=== PATIENT | female | born 1955 | race Caucasian/White ===

== ENCOUNTER 2017-04-05 18:51 | Emergency (ER) | payer OTHER ==
[~2017-04-05] VITALS: Ht 162.6 cm; Wt 100.8 kg
[~2017-04-05 18:51] MED LIST: ASCA500 PO; CHOL100010 PO; DULO60CA44 PO; GABA600T PO; GFNSR600 PO; LATA0.009 OPB; OXYC1CAP5 PO; PROC1TAB5 PO; SIME1CAP11 PO
[2017-04-05 18:55] VITALS: TEMP 36.6; Ht 162.6 cm; Wt 100.8 kg
[2017-04-05] MEDS ORDERED: LDDP5 TOP (19:33)
[2017-04-05] MEDS ORDERED: LSX20 PO (19:33)
[2017-04-05] MEDS ORDERED: XLTOPS OPB (19:33)
--- NOTE | 2017-04-05 19:38 | EMERGENCY ROOM VISIT NOTE ---
History First contact with patient: 18:59 Chief Complaint: SWELLING TO EXTREMITY Stated Complaint: LEFT LEG PAIN AND SWELLING History of Present Illness The patient is a 62 year old female who presents to the Emergency Room with complaints of left leg pain and swelling. The patient states that she noticed pain and swelling in the left leg yesterday. The patient states her pain is 8/ 10. The patient denies any known injury. She denies falling. The patient traveled recently but just back and forth to [facility]. She denies any pain in her chest or trouble breathing. She denies any redness or warmth. The patient denies any personal or family history of DVT or PE. She states that her has had a pulmonary embolus and she was concerned. She denies any other symptoms. Review of Systems A 10 system review of systems was completed with positives and pertinent negatives listed in the HPI. Past Medical/Surgical History Medical Problems: (1) Benign hypertension (2) delivery delivered (3) Depression (4) Obesity (5) pylorus repair (6) Rotator cuff injury (7) UTI (urinary tract infection) Surgical Problems: (1) H/O arthroscopic knee surgery (2) H/O dilation and curettage (3) H/O esophagogastroduodenoscopy (4) H/O gastric bypass (5) H/O ovarian cystectomy (6) History of liver biopsy (7) Total knee replacement status Family History Diabetes mellitus Hypertension MOTHER Kidney stones FATHER Stroke FATHER Social History Smoking Status: Never Smoker Alcohol Use: none Marital Status: Housing Status: lives with family Occupation Status: unemployed Current/Historical Medications Scheduled Acetaminophen (Tylenol), 1,000 MG PO PRN UD Ascorbic Acid (Vitamin C), 500 MG PO DAILY Calcium W/ Vitamins D & K (Viactiv), 2 TABS PO DAILY Cholecalciferol (D 50717), 1,000 UNITS DAILY Cyanocobalamin (Vitamin Deficiency Inject), 1 DOSE INJ MONTHLY Gabapentin (Neurontin), 600 TAB PO BID Latanoprost (Latanoprost), 1 DROP OPB QPM Lidocaine (Lidocaine), 1 PATCH TOP DAILY Omeprazole (Prilosec), 20 MG PO DAILY Scheduled PRN Furosemide (Furosemide), 20 MG PO DAILY PRN for SWELLING Glycopyrrolate (Glycopyrrolate), 1 MG PO TID PRN for SWEATING Simethicone (Simethicone), MG PO DIRECTED PRN for gas relief Allergies Coded Allergies: Verapamil (Verified Allergy, Mild, red, hot, 11/05/15) Fentanyl (Unverified Allergy, Unknown, head feels funny, 11/05/15) Morphine (Verified Allergy, Unknown, UNKNOWN, 11/05/15) Sulfamethoxazole w/Trimethoprim (Verified Allergy, Unknown, LEG WEAKNESS, 04/05/17) INFO FROM [facility] Physical Exam Vital Signs Date Time Temp Pulse Resp B/P (MAP) Pulse Ox O2 Delivery O2 Flow Rate FiO2 04/05/17 20:14 70 18 126/89 97 04/05/17 18:55 36.6 85 18 140/87 98 Room Air Physical Exam VITALS: Vitals are noted on the nurse's note and reviewed by myself. Vital signs stable. GENERAL: This is a 62-year-old female in no acute distress, nondiaphoretic, well -developed well-nourished. SKIN: The skin was without rashes, erythema, or bruising. There is mild edema noted to the bilateral lower extremities, left minimally worse than right There is no tenting of the skin. Capillary reflex less than 2 seconds. HEAD: Normocephalic atraumatic. EARS: The external ears are normal in appearance. EYES: Pupils equal round and reactive to light and accommodation. Conjunctivae without injection, sclerae without icterus. Extraocular movements intact. NOSE: Patent, turbinates without inflammation or discharge. MOUTH: Mucous membranes moist. Tonsils are not enlarged. Pharynx without erythema or exudate. Uvula midline. Airway patent. Tongue does not deviate. NECK: Supple without nuchal rigidity. No lymphadenopathy. No thyromegaly. Cervical spine is nontender. No JVD. HEART: Regular rate and rhythm without murmurs gallops or rubs. LUNGS: Clear to auscultation bilaterally without wheezes, rales or rhonchi. No retractions or accessory muscle use. MUSCULOSKELETAL: No muscle atrophy, erythema, noted. Full range of motion without joint tenderness in all extremities. No tenderness to palpation. There are no palpable cords to the left calf. Normal gait. Strength 5/5 throughout. NEURO: Patient was alert and oriented to person place and time. No focal neurological deficits. Medical Decision & Procedures ER Provider Diagnostic Interpretation: [~ rep ct add3]] ULTRASOUND LEFT LOWER EXTREMITY VENOUS CLINICAL HISTORY: Left leg swelling. COMPARISON STUDY: No priors. TECHNIQUE: Real-time, grayscale, and color Doppler sonography of the deep veins of the left lower extremity was performed from the inguinal crease to the calf. Compression and augmentation were utilized. FINDINGS: There is no sonographic evidence of deep venous thrombosis identified in the left lower extremity. The common femoral, superficial femoral, and popliteal veins are patent and normally compressible. The greater saphenous vein and the profunda femoris vein at the junction with the common femoral vein are clear. The visualized calf veins are patent. Mild subcutaneous soft tissue edema is seen in the medial calf. IMPRESSION: There is no sonographic evidence of deep venous thrombosis identified in the left lower extremity. ED Course The patient was seen and examined. Previous visits were reviewed. The patient does not have a fever. There is no erythema or warmth of the leg to suggest infectious process. Ultrasound of the left lower extremity was negative for DVT. This could potentially represent a muscular pain or potentially edema as she does develop bilateral lower extremity edema and takes Lasix. She has not had any pain in her chest or trouble breathing. She should contact her family doctor for a follow-up appointment for further evaluation and management. She should return to the ER with worsening symptoms. The patient was also seen and examined by Dr. Rothman who agrees with the assessment and treatment plan. Medication Reconciliation: I attest that I have personally reviewed the patient' s current medication list. Blood pressure screening: The patient was found to have normal blood pressure on screening and does not require follow-up Medical Decision Differential diagnosis includes DVT, cellulitis, superficial, phlebitis, contusion, sprain, strain, among others Impression Primary Impression: Swelling of left extremity Additional Impression: Left leg pain Departure Information Dispostion Home / Self-Care Condition GOOD Referrals Yonathan Jones DTioO. (PCP) Patient Instructions My [facility] Additional Instructions Rest Follow up with your family doctor in 1 week if symptoms persist Return with worsening pain, swelling, redness, warmth, chest pain or trouble breathing Problem Qualifiers
--- NOTE | 2017-04-05 19:47 | DIAGNOSTIC IMAGING REPORT ---
ULTRASOUND LEFT LOWER EXTREMITY VENOUS CLINICAL HISTORY: Left leg swelling. COMPARISON STUDY: No priors. TECHNIQUE: Real-time, grayscale, and color Doppler sonography of the deep veins of the left lower extremity was performed from the inguinal crease to the calf. Compression and augmentation were utilized. FINDINGS: There is no sonographic evidence of deep venous thrombosis identified in the left lower extremity. The common femoral, superficial femoral, and popliteal veins are patent and normally compressible. The greater saphenous vein and the profunda femoris vein at the junction with the common femoral vein are clear. The visualized calf veins are patent. Mild subcutaneous soft tissue edema is seen in the medial calf. IMPRESSION: There is no sonographic evidence of deep venous thrombosis identified in the left lower extremity. Electronically signed by: Nic Olson M.D. 04/05/2017 7:45 PM Dictated Date/Time: 04/05/2017 7:45 PM
[2017-04-05] MEDS ORDERED: RBN1 PO (19:49)
[2017-04-05] MEDS ORDERED: CHOL1CAP6 (19:57)
[2017-04-05] MEDS ORDERED: DRYSOLDAB TOP (19:57)
[2017-04-05] MEDS ORDERED: CALC8.5C PO (19:57)
[2017-04-05] MEDS ORDERED: ACET-1256 PO (19:57)
[2017-04-05] MEDS ORDERED: PRLSR20 PO (19:57)
[2017-04-05] MEDS ORDERED: CYAN100074 INJ (19:57)
[2017-04-05 20:14] VITALS: BP 126/89; PULSE 70; O2SAT 97
--- NOTE | 2017-04-05 21:01 | EMERGENCY ROOM VISIT NOTE ---
ED Visit Note First contact with patient: 18:57 I have personally seen and evaluated the patient with the PA. I agree with the diagnosis and management decisions and have been personally involved in the case. Please see Jessica Layton PA-C's notes for further details of the history, physical and visit.
== END 2017-04-05 20:15 | disposition home or self-care (01) ==
LOC: C.EDB 18:53 → C.EDC 20:15
DX: M79.89 Other specified soft tissue disorders (principal); M79.605 Pain in left leg; I10 Essential (primary) hypertension; F32.9 Major depressive disorder, single episode, unspecified; E66.9 Obesity, unspecified; Z87.440 Personal history of urinary (tract) infections; Z98.84 Bariatric surgery status; Z83.3 Family history of diabetes mellitus; Z82.49 Family history of ischemic heart disease and other diseases of the circulatory system; Z84.1 Family history of disorders of kidney and ureter; Z79.899 Other long term (current) drug therapy